=== PATIENT | male | born 1955 | race Two or more races ===

== ENCOUNTER 2024-10-14 15:23 | Emergency (ER) | payer MEDICARE, MEDICAID, SELFPAY ==
[2024-10-14 15:29] VITALS: BP 110/71; PULSE 100; RESP 24; TEMP 37.6; O2SAT 95
--- NOTE | 2024-10-14 15:35 | XR_ITS ---
Examination: CT abdomen and pelvis without contrast. Coronal 3-D reconstructions. Sagittal 2-D reconstructions. Date and time of exam:October 14, 2024 1601 hours INDICATIONS: Onset lower abdominal pain with nausea vomiting beginning 2 days ago CTDI: vol (mGy): 8.08 DLP: (mGycm): 525 Technique: Axial images of the abdomen have been obtained, 3 mm slice thickness Intravenous contrast material has not been administered. Low dose protocols were performed. One or more of the following dose reduction techniques were used; automated exposure control, adjustment of the mA and/or KV according to patient size, use of iterative reconstruction technique. Findings: Atelectasis versus early pneumonia left base 11 mm lymph node adjacent to the descending thoracic aorta on the right side image 50 No liver lesion Multiple tiny gallstones Spleen is not enlarged No pancreatic or adrenal mass No renal or ureteral calculi, no hydronephrosis Normal appendix Multiple fluid distended small bowel loops, likely reactive ileus secondary to acute sigmoid diverticulitis Suspicious for developing abscess, air density at this time which is immediately within the lumen of the sigmoid colon, axial image 190 This would not be amenable to abscess drainage catheter placement at this time Urinary bladder intact Fat-containing left inguinal hernia IMPRESSION: Cholelithiasis Acute diverticulitis sigmoid colon, suspicious for early developing abscess, recommend follow-up CT abdomen pelvis images post contrast with treatment
--- NOTE | 2024-10-14 15:36 | XR_ITS ---
Examination: PA lateral chest 2 views TECHNIQUE: Upright PA lateral chest 2 views Exam date and time: October 14, 2024 1550 hours INDICATIONS: Lower abdominal pain coughing today FINDINGS: Early pneumonia posterior basal segment left lower lobe noted on the lateral view, obscuring detail left hemidiaphragm Normal heart size Right lung clear IMPRESSION: Pneumonia posterior basal segment left lower lobe
--- NOTE | 2024-10-14 15:36 | PD.EDRME ---
Rapid Medical Screening Exam RME Arrival date/time: 10/14/24 15:23 69-year-old male presents emergency department with lower abdominal pain and cough Chief Complaint: Abdominal Pain Vital signs: Vital Signs Temperature 99.7 F 10/14/24 15:29 Pulse Rate 100 10/14/24 15:29 Respiratory Rate 24 H 10/14/24 15:29 Blood Pressure 110/71 10/14/24 15:29 Pulse Oximetry (%) 95 10/14/24 15:29 Oxygen Delivery Method Room Air 10/14/24 15:29
[2024-10-14 16:07] LABS: Basophils % (Auto) 0 % (0-2.5); Eosinophils # (Auto) 10.5 Thou/mm3 (0.0-0.5); Eosinophils % (Auto) 53 % (0-10); Hemoglobin 15.8 g/dL (13.5-16.0); Immature Granulocytes % (Auto) 0 % (0-0); Immature Granulocytes Auto 0.05 Thou/mm3 (0.00-0.00); Lymphocytes % (Auto) 5 % (10-50); Mean Corpuscular HGB Conc 33.6 g/dl (31.0-37.0); Mean Corpuscular Hemoglobin 27.7 pg (25.0-35.0); Mean Corpuscular Volume 83 fL (80-100); Monocytes # (Auto) 0.8 Thou/mm3 (0.0-0.8); Monocytes % (Auto) 4 % (0-12); Neutrophils # (Auto) 7.3 Thou/mm3 (1.8-7.7); Neutrophils % (Auto) 37 % (37-80); Nucleated Red Blood Cell % 0 /100 WBC (0); Platelet Count 344 Thou/mm3 (140-440); RDW Standard Deviation 41.7 fL (35.1-43.9); White Blood Count 19.7 Thou/mm3 (3.8-10.6)
[2024-10-14 16:35] LABS: Band Neutrophils (Manual) 6 % (0-6); Lymphocytes (Manual) 8 % (20-44); Monocytes (Manual) 1 % (2-9); Neutrophils (Manual) 85 % (50-70)
[2024-10-14 16:36] LABS: Alanine Aminotransferase 23 U/L (10-49); Albumin, Serum 5.3 gm/dL (3.4-4.8); Albumin/Globulin Ratio 1.8 (1.2-2.2); Alkaline Phosphatase 74 U/L (46-116); Anion Gap 9 (7-16); Aspartate Amino Transferase 20 U/L (0-34); BUN/Creatinine Ratio 20 Ratio (12-20); Bilirubin,Total 1.6 mg/dL (0.3-1.2); Blood Urea Nitrogen 30 mg/dL (9-23); Calcium 10.7 mg/dL (8.3-10.6); Calcium (Corrected) 10.7 mg/dL (8.5-10.1); Carbon Dioxide 25.7 mMol/L (20.0-31.0); Chloride 100 mMol/L (98-107); Creatinine (Component) 1.5 mg/dL (0.6-1.3); Glucose 141 mg/dL (74-106); Lipase 26 U/L (12-53); Osmolality,Calculated 278 (275-295); Potassium 4.2 mMol/L (3.4-5.1); Sodium 135 mMol/L (136-145); Total Protein 8.3 gm/dL (5.7-8.2); Troponin I < 0.020 ng/mL (0.0-0.045); eGFR 51 See Note
[2024-10-14 17:01] LABS: Collection Type, Urine Clean Catch
[2024-10-14 17:11] LABS: Bacteria,Urine 1+; Bilirubin,Urine Negative (Negative); Blood,Urine Negative (Negative); Color,Urine Drk-Yellow (Lt Yel-Yel); Glucose, Urine Trace (Negative); Hyaline Casts,Urine 1 /hpf (0-1); Ketones,Urine Trace (Negative); Leukocyte Esterase,Urine Negative (Negative); Nitrite,Urine Negative (Negative); Protein,Urine 2+ (Neg - Trace); RBC,Urine 10 /hpf (0-3); Specific Gravity,Urine 1.038 (1.001-1.035); Squamous Epithelial Cell,Urine 2 /hpf (0-5); WBC,Urine 14 /hpf (0-5)
[2024-10-14 17:29] LABS: Clarity,Urine Cloudy (Clear/Hazy); Culture Indicated,Urine Yes
== END 2024-10-14 19:40 | disposition left against medical advice (07) ==
LOC: SERX 15:42
PROVIDERS: Nurse Practitioner Primary Care; Emergency Provider Emergency Medicine; PCP Physician Assistant
DX: R10.30 Lower abdominal pain, unspecified (principal); R05.9 Cough, unspecified; Z53.29 Procedure and treatment not carried out because of patient's decision for other reasons
CPT/HCPCS: 36415; 71046; 74176; 80053; 81001; 83690; 84484; 85025; 87086; 99284

== ENCOUNTER 2025-03-06 08:39 | Emergency (ER) | payer MEDICARE, MEDICAID, SELFPAY ==
[2025-03-06 08:47] VITALS: BP 164/87; PULSE 64; RESP 16; TEMP 36.6; O2SAT 98; BMI 27.4
--- NOTE | 2025-03-06 08:56 | XR_ITS ---
Examination: Left elbow 3 views Technique: Elbow AP, oblique, lateral 3 views Exam date and time: March 06, 2025 1027 hrs. Indications: Patient fell today with injury to the elbow, elbow pain Findings: No elbow effusion No definite acute fracture No dislocation Impression: No definite acute fracture Repeat this study short-term as clinically warranted.
--- NOTE | 2025-03-06 08:56 | XR_ITS ---
Examination: Forearm, left, 2 views. Technique: Forearm, AP, lateral 2 views Date and time of exam: March 06, 2025 1027 hrs. Indications: Patient fell today with injury to the forearm, forearm pain. Findings: Technique has limited No acute fracture depicted Impression: Limited study with no acute fracture noted
--- NOTE | 2025-03-06 08:56 | EDNOTE_ITS ---
Upper Extremity Injury RME/HPI General Chief Complaint: Extremity Injury, Upper Stated Complaint: LEFT ELBOW AND RIGHT SHOULDER PAIN S/P FALL Time Seen by Provider: 03/06/25 08:45 Arrival date/time: 03/06/25 08:39 This is a 69-year-old male that comes in with complaints of a fall that happened yesterday. Patient states that a dog got in front of him and he did not want to step on it so he accidentally fell onto his right shoulder and left elbow. Patient denies any other injuries. Patient denies any loss of consciousness. Related Data Previous Rx's ?Medication ?Instructions ?Recorded ibuprofen 800 mg tablet 800 mg PO Q6H PRN pain #10 t abs 03/06/25 Allergies Allergy/AdvReac Type Severity Reaction Status Date / Time No Known Allergies Allergy Verified 03/06/25 08:44 Course Orders Category Date Time Status XR elbow comp LT min 3V Stat Exams 03/06/25 08:56 Completed XR forearm LT 2V Stat Exams 03/06/25 08:56 Completed XR hand LT 2V Stat Exams 03/06/25 08:57 Completed XR shoulder RT min 2V Stat Exams 03/06/25 08:56 Completed Acetaminophen Tab [Tylenol ES Tab] Med 03/06/25 08:57 Discontinued 1,000 mg PO X1 ONE Ibuprofen Tab [Motrin Tab] Med 03/06/25 08:57 Discontinued 800 mg PO X1 ONE Vital Signs Vital signs: Vital Signs Temperature 97.8 F 03/06/25 08:47 Pulse Rate 64 03/06/25 08:47 Respiratory Rate 16 03/06/25 08:47 Blood Pressure 164/87 H 03/06/25 08:47 Pulse Oximetry (%) 98 03/06/25 08:47 Extremity Injury MDM Narrative [facility] Narrative:: left elbow: Findings: No elbow effusion No definite acute fracture No dislocation Impression: No definite acute fracture Repeat this study short-term as clinically warranted. left forearm: Findings: Technique has limited No acute fracture depicted Impression: Limited study with no acute fracture noted right shoulder: Findings: No shoulder fracture or dislocation No foreign body Impression: No shoulder fracture or dislocation left hand: Findings: Prominent osteopenia No acute fracture No dislocation Impression: No acute fracture Medications / Prescriptions Medication administrations:: Medication Administration History Discontinued Medications Acetaminophen (Acetaminophen 500 Mg Tablet) 1,000 mg PO X1 ONE Stop: 03/06/25 08:58 Last Admin: 03/06/25 09:39 Dose: 1,000 mg Documented By: NELDA Ibuprofen (Ibuprofen Tab 400 Mg Tablet) 800 mg PO X1 ONE Stop: 03/06/25 08:58 Last Admin: 03/06/25 09:39 Dose: 800 mg Documented By: NELDA Discharge Plan Plan Patient Disposition: HOME (Self Care) Patient condition on transfer: Stable Prescriptions/Referrals Prescriptions/Med Rec: New ibuprofen 800 mg tablet 800 mg PO Q6H PRN (Reason: pain) Qty: 10 0RF Referrals: Nixon Corona PA-C [Primary Care Provider] - In 1 week Problem List Clinical Impression: Contusion Patient/Caregiver Discharge Instructions Discharge Activity: activity as tolerated Education Materials: Contusion Bone Tx Additional Instructions: Kristie un jb con laura medico de cabecera en las proximas 24-48 horas. Regrese a la acosta de emergencias si hay evidencia de que los signos o sintomas empeoran. Print Language: Persian Stand Alone Forms: Nathalie Award Info., Patient Portal Info Letter PA/SRAVAN Supervising Physician JORGE Supervising Physician: [email or web address]
--- NOTE | 2025-03-06 08:56 | XR_ITS ---
Examination: Shoulder,right, 3 views Technique: Shoulder AP internal rotation, AP external rotation, Y view shoulder, 3 views Exam date and time :March 06, 2025 1027 hrs. Indications: Patient fell today with injury to the shoulder, shoulder pain. Findings: No shoulder fracture or dislocation No foreign body Impression: No shoulder fracture or dislocation
--- NOTE | 2025-03-06 08:57 | XR_ITS ---
Examination: Hand, left 2 views Technique: Hand AP, lateral 2 views Date and time of exam: March 06, 2025 1027 hrs. Indications: Patient fell today with injury to the hand, hand pain. Findings: Prominent osteopenia No acute fracture No dislocation Impression: No acute fracture
[2025-03-06] MEDS: ACETAMINOPHEN 500 MG TABLET 1000 MG PO (09:39)
[2025-03-06] MEDS: IBUPROFEN TAB 400 MG TABLET 800 MG PO (09:39)
== END 2025-03-06 11:35 | disposition home or self-care (01) ==
PROVIDERS: Emergency Provider Emergency Medicine; PCP Physician Assistant
DX: M25.511 Pain in right shoulder (principal); M25.522 Pain in left elbow; T14.8XXA Other injury of unspecified body region, initial encounter; W19.XXXA Unspecified fall, initial encounter
CPT/HCPCS: 73030; 73080; 73090; 73120; 99283; A9270